=== PATIENT | male | born 1960 | race Hispanic/Latino ===

== ENCOUNTER → 2021-10-05 | Outpatient (CLI) | payer OTHER | END | disposition home or self-care (01) | LOC: RAH 08:34 | PROVIDERS: ATTEND Internal Medicine | DX: K76.0 Fatty (change of) liver, not elsewhere classified (principal) | CPT/HCPCS: 76700 ==

== ENCOUNTER 2023-09-02 13:22 | Emergency (ER) | payer OTHER ==
[~2023-09-02] VITALS: Ht 172.7 cm; Wt 68.0 kg
[2023-09-02 14:08] LABS: BASOPHILS # (AUTO) 0.04 K/uL (0.00-0.20); BASOPHILS % (AUTO) 0.7 % (0.0-5.0); EOSINOPHILS # (AUTO) 0.11 K/uL (0.00-0.70); EOSINOPHILS % (AUTO) 1.9 % (0.0-8.0); HEMATOCRIT 41.8 % (42-54); IMMATURE GRANULOCYTE ABSOLUTE 0.02 K/uL (0-1); LYMPHOCYTES # (AUTO) 0.6 K/uL (1.0-4.8); LYMPHOCYTES % (AUTO) 10.4 % (21.0-51.0); MEAN CORPUSCULAR HEMOGLOBIN 32.6 pg (27.0-33.0); MEAN CORPUSCULAR HGB CONC 34.7 g/dL (32.0-36.0); MEAN CORPUSCULAR VOLUME 93.9 fL (79-99); MONOCYTES # (AUTO) 0.4 K/uL (0.1-1.0); MONOCYTES % (AUTO) 7.2 % (3.0-13.0); NEUTROPHILS # (AUTO) 4.5 K/uL (1.8-7.7); NEUTROPHILS % (AUTO) 79.4 % (40.0-77.0); PLATELET COUNT (AUTO) 52 K/uL (130-400); RED BLOOD CELL COUNT(AUTO) 4.45 MIL/uL (4.50-6.20); RED CELL DISTRIBUTION WIDTH 14.1 % (11.0-15.5); WHITE BLOOD COUNT (AUTO) 5.7 K/uL (4.8-10.8)
[2023-09-02 14:17] LABS: INR 1.05 (0.85-1.15); PROTHROMBIN TIME 12.3 SEC (9.6-11.6)
[2023-09-02 14:19] LABS: PARTIAL THROMBOPLASTIN TIME 29.6 SEC (26.3-35.5)
[2023-09-02 14:31] LABS: CREATININE 0.7 mg/dL (0.5-1.3); POTASSIUM 3.9 mmol/L (3.5-5.1)
[2023-09-02 14:34] LABS: ALBUMIN 2.6 g/dL (3.5-5.0); BILIRUBIN,TOTAL 1.7 mg/dL (0.2-1.0); TOTAL PROTEIN, SERUM 6.4 g/dL (6.0-8.3)
[2023-09-02] MEDS: 0.9%NACL 1000ML 1,000 ML IV ONE (15:28)
[2023-09-02 16:05] LABS: APPEARANCE,URINE CLEAR (CLEAR); BILIRUBIN,URINE NEGATIVE (NEGATIVE); COLOR,URINE YELLOW (YELLOW); GLUCOSE, URINE (UA) >=1000 mg/dL (NEGATIVE); KETONES,URINE NEGATIVE (NEGATIVE); LEUKOCYTE ESTERASE ,URINE NEGATIVE Leu/uL (NEGATIVE); NITRATE,URINE NEGATIVE (NEGATIVE); OCCULT BLOOD,URINE NEGATIVE (NEGATIVE); PH,URINE 6.5 (5.0-8.0); PROTEIN,URINE 10 mg/dL (NEGATIVE); UROBILINOGEN,URINE 3 mg/dL (0.2-1.0)
[2023-09-02 16:07] VITALS: BP 130/68; PULSE 57; RESP 16; O2SAT 97
[2023-09-02 16:27] LABS: ADD UA MICROSCOPIC YES
[2023-09-02 16:32] LABS: SQUAMOUS EPITHELIAL CELL,UR RARE /HPF (0-2)
== END 2023-09-02 17:06 | disposition home or self-care (01) ==
LOC: EDH 13:22
DX: E11.65 Type 2 diabetes mellitus with hyperglycemia (principal); R07.9 Chest pain, unspecified; Z79.899 Other long term (current) drug therapy
CPT/HCPCS: 99285; 96360; 71045; 82550; 84484; 80053; 85025; 85610; 85730; 82948; 82010; 81001; 36415; 93005; J7030

== ENCOUNTER 2024-06-27 12:25 | Emergency (ER) | payer SELFPAY ==
[~2024-06-27] VITALS: Ht 167.6 cm; Wt 69.4 kg
--- NOTE | 2024-06-27 12:34 | ERN ---
ED Note History of Present Illness Stated Complaint: SWELLING/PAIN TO BILATERAL HANDS Chief Complaint: Hand Problem/Injury Time Seen by MD: 12:31 Dictation: PATIENT IS A 64-YEAR-OLD MALE COMING IN TODAY WITH COMPLAINTS OF BILATERAL HAND PAIN AND SWELLING ONSET YESTERDAY. HE STATES HE WAS WALKING WHEN HE TRIPPED AND FELL LANDED ON EXTENDED LEFT HAND AND RIGHT HAND. NOT TAKEN ANYTHING PRIOR TO ARRIVAL FOR PAIN, SKIN IS INTACT. NO PRIMARY CARE DOCTOR . NO BLOOD THINNERS NO HEAD INJURY NO TRAUMA ALERT CRITERIA. Allergies: Coded Allergies: No Known Drug Allergies (Unverified Allergy, Unknown, 06/27/24) Past Medical History Past Medical History: Diabetes-Type II, Liver Disease Surgical History: None RN Note Reviewed/Agreed w/PFSH: Yes Review of System Dictation CONSTITUTIONAL: NEGATIVE EXCEPT FOR HPI HEAD/FACE: NEGATIVE EXCEPT FOR HPI EENT: NEGATIVE EXCEPT FOR HPI RESPIRATORY: NEGATIVE EXCEPT FOR HPI GASTROINTESTINAL/ABDOMINAL: NEGATIVE EXCEPT FOR HPI GENITOURINARY: NEGATIVE EXCEPT FOR HPI MUSCULOSKELETAL: NEGATIVE EXCEPT FOR HPI BILATERAL HAND PAIN/SWELLING INTEGUMENTARY: NEGATIVE EXCEPT FOR HPI NEUROLOGICAL/PSYCH: NEGATIVE EXCEPT FOR HPI HEMATOLOGIC/LYMPHATIC: NEGATIVE EXCEPT FOR HPI ALL SYSTEMS NEGATIVE, EXCEPT NOTED ABOVE. 13 POINT REVIEW OF SYSTEMS ASSESSED AND ALL NEGATIVE EXCEPT FOR ABOVE. Initial Vital Sign VS Vital Signs Date Time Temp Pulse Resp B/P (MAP) Pulse Ox O2 Delivery O2 Flow Rate FiO2 06/27/24 12:30 98.1 70 16 112/67 96 Room Air 0 Physical Exam Dictation VITAL SIGNS REVIEWED GENERAL APPEARANCE: ALERT, ORIENTED X 3, MILD ACUTE DISTRESS, WELL DEVELOPED, NOURISHED. HEAD AND FACE: NON-TRAUMATIC. EYES: PERRL, PINK CONJUNCTIVAS, EYELID NO TRAUMA, ANTERIOR CHAMBER WITH ARCUS SENILIS. EARS: PINNAS INTACT AND NO SIGNS OF TRAUMA OR ERYTHEMA EAR CANALS CLEAR AND NO DISCHARGE TM NO ERYTHEMA NOSE: NO DISCHARGE, NO BLEEDING. OROPHARYNX: MOUTH NORMAL, TONGUE PINK, PHARYNX CLEAR,NO ERYTHEMA, TONSILS NO EXUDATES, NO ABSCESSES NOTED, MUCOUS MEMBRANE MOIST NECK: SUPPLE, NON-TENDER, NO THYROMEGALY, NO MASSES, NO JVD, NO BRUITS BREAST:DEFERRED CHEST:NO TENDERNESS, NO CREPITUS, NO PARADOXICAL MOVEMENT, NO RETRACTIONS LUNGS:CLEAR, WELL-VENTILATED, SYMMETRIC, NO RALES, NO WHEEZING, NO RHONCHI, NO STRIDOR, GOOD BREATH SOUNDS BILATERALLY HEART: REGULAR RATE, REGULAR RHYTHM, NO MURMUR, NO GALLOPS VASCULAR: NO PERIPHERAL EDEMA, ABDOMEN: SOFT, POSITIVE BOWEL SOUNDS, NONDISTENDED, NO GUARDING, NONTENDER, NO REBOUND, NO MASSES NO HEPATOMEGALY, NO SPLENOMEGALY, NO KURTZ'S SIGN, NO HERNIAS. RECTAL: DEFERRED GENITAL: DEFERRED NEUROLOGICAL: NORMAL SPEECH, MOTOR FUNCTION INTACT, SENSORY FUNCTION INTACT MUSCULOSKELETAL: NECK NONTENDER, FULL RANGE OF MOTION, BACK NONTENDER, FULL RANGE OF MOTION, EXTREMITIES: BILATERAL DORSAL HAND PAIN SWELLING STATUS POST SAME LEVEL FALL YESTERDAY. DISTAL NEUROVASCULAR CMS INTACT, SKIN INTACT. SKIN: COLOR PINK, DRY, NO TURGOR, NO RASH, NO LACERATIONS, NO ABRASIONS, NO CONTUSIONS. LYMPHATIC: DEFERRED Results (Laboratory/Radiology) Laboratory/Radiology HAND 3+VWS RT HISTORY: Pain COMPARISON: None TECHNIQUE: 3 images of the right hand were obtained. FINDINGS: There is no acute displaced fracture or dislocation. Radiocarpal joint space narrowing and interphalangeal joint space narrowing are seen. Degenerative changes are seen. IMPRESSION: 1. Findings as described above. HAND 3+VWS LT HISTORY: Pain COMPARISON: None TECHNIQUE: 3 images of the left hand were obtained. FINDINGS: The radiocarpal joint space narrowing and interphalangeal joint space narrowing are seen. There is fracture involving the ulnar styloid styloid of indeterminate age. Clinical correlation is recommended. Degenerative changes are seen. IMPRESSION: 1. Findings as described above. Labs Reviewed?: Yes ED Course ED Course Orders Procedure Category Date Status Time Hand 3+Vws Lt RAD 06/27/24 Resulted 12:32 Hand 3+Vws Rt RAD 06/27/24 Resulted 12:32 Acetaminophen 500mg PHA 06/27/24 Complete Tab (Tylenol 500mg T 13:00 Current Medications Medications (Trade) Dose Ordered Sig/Macario Route PRN Reason Start Time Stop Time Status Last Admin Dose Admin Acetaminophen (TYLenol 500MG TAB) 1,000 mg ONCE ONCE PO 06/27/24 13:00 06/27/24 13:46 DC 06/27/24 14:06 Vital Signs Date Time Temp Pulse Resp B/P (MAP) Pulse Ox O2 Delivery O2 Flow Rate FiO2 06/27/24 12:30 98.1 70 16 112/67 96 Room Air 0 1500/LEFT ULNAR FRACTURE, LEFT HAND NEGATIVE, RIGHT HAND NEGATIVE VOLAR SPLINT PLACED BY TECH DISTAL NEUROVASCULAR CMS INTACT POST PLACED Medical Decision Making MDM DISCHARGE MEDICAL DISCHARGE MAKING BASED ON X-RAYS OF LEFT AND RIGHT HAND. PATIENT HAS LEFT ULNAR FRACTURE NONDISPLACED VOLAR SPLINT PLACED NEUROVASCULAR CMS INTACT TO LEFT HAND POST PLACEMENT REFERRED TO DR. NIMCO ORTIZ DX & DISP Disposition: Discharge Departure Impression: Primary Impression: Contusion of right hand including fingers Additional Impressions: Left ulnar fracture, Fall Condition: Stable Scripts Ibuprofen (Ibuprofen 800 mg Tab) 800 Mg Tab 800 MG PO Q8H PRN for fever or pain, #30 TAB 0 Refills Prov: FRIDA NIELSEN [employer] 06/27/24 Additional Instructions: FOLLOW-UP WITH PRIMARY CARE PROVIDER IN 1 TO 2 DAYS. TAKE MEDICATIONS DIRECTED HERE IN THE EMERGENCY ROOM. OKAY TO CONTINUE HOME MEDICATIONS UNLESS OTHERWISE DISCUSSED DURING YOUR VISIT IN THE EMERGENCY ROOM TODAY. RETURN TO YOUR NEAREST EMERGENCY ROOM IF SYMPTOMS WORSEN OR IF THERE IS NO IMPROVEMENT. CALL 911 IF YOU NEED IMMEDIATE ASSISTANCE. TAKE TYLENOL OR MOTRIN [id number] TER NEEDED AND IF NO CONTRAINDICATIONS ARE PRESENT. INCREASE ORAL HYDRATION. A WOUND CULTURE OR URINE CULTURE WAS ORDERED HERE IN THE EMERGENCY ROOM DEPARTMENT PLEASE FOLLOW-UP WITH PRIMARY CARE PROVIDER AND ADVISE THEM TO GET REPEAT PORTS FROM OUR FACILITY. IF YOU HAD ANY KAIN WRAP/SPLINTS THAT WERE APPLIED HERE, PLEASE DO NOT REMOVE THEM UNTIL YOU SEE YOUR PRIMARY CARE OR SP ECIALTY. FOLLOW-UP WITH PRIMARY CARE PROVIDER IN 1 TO 2 DAYS. TAKE MEDICATIONS DIRECTED HERE IN THE EMERGENCY ROOM. OKAY TO CONTINUE HOME MEDICATIONS UNLESS OTHERWISE DISCUSSED DURING YOUR VISIT IN THE EMERGENCY ROOM TODAY. RETURN TO YOUR NEAREST EMERGENCY ROOM IF SYMPTOMS WORSEN OR IF THERE IS NO IMPROVEMENT. CALL 911 IF YOU NEED IMMEDIATE ASSISTANCE. TAKE TYLENOL OR MOTRIN [id number] NEEDED AND IF NO CONTRAINDICATIONS ARE PRESENT. INCREASE ORAL HYDRATION. A WOUND CULTURE OR URINE CULTURE WAS ORDERED HERE IN THE EMERGENCY ROOM DEPARTMENT PLEASE FOLLOW-UP WITH PRIMARY CARE PROVIDER AND ADVISE THEM TO GET REPEAT PORTS FROM OUR FACILITY. IF YOU HAD ANY KAIN WRAP/SPLINTS THAT WERE APPLIED HERE, PLEASE DO NOT REMOVE THEM UNTIL YOU SEE YOUR PRIMARY CARE OR SPECIALTY. SPLINT/SLING/NO WEIGHT-BEARING UNTIL CLEARED BY ORTHOPEDIC SURGEON, CALL FOR AN APPOINTMENT. COOL COMPRESSES TO PAIN THREE TO 4 TIMES A DAY. . Referrals: TERRA HAILE MD (PCP) NIMCO ORTIZ DO Time of Disposition: 15:03 I have reviewed the case, and I agree with, Diagnosis and Plan FRIDA NIELSEN NP Jun 27, 2024 12:34
--- NOTE | 2024-06-27 14:02 | HMCIMG ---
HAND 3+VWS RT HISTORY: Pain COMPARISON: None TECHNIQUE: 3 images of the right hand were obtained. FINDINGS: There is no acute displaced fracture or dislocation. Radiocarpal joint space narrowing and interphalangeal joint space narrowing are seen. Degenerative changes are seen. IMPRESSION: 1. Findings as described above.
[2024-06-27] MEDS: acetaMINOPHEN 500 MG TABLET PO ONE (14:06)
--- NOTE | 2024-06-27 14:06 | HMCIMG ---
HAND 3+VWS LT HISTORY: Pain COMPARISON: None TECHNIQUE: 3 images of the left hand were obtained. FINDINGS: The radiocarpal joint space narrowing and interphalangeal joint space narrowing are seen. There is fracture involving the ulnar styloid styloid of indeterminate age. Clinical correlation is recommended. Degenerative changes are seen. IMPRESSION: 1. Findings as described above.
[2024-06-27] MEDS ORDERED: IBUP-2077 PO (15:12)
[2024-06-27 15:51] VITALS: BP 115/69; PULSE 72; RESP 16; TEMP 98.1; O2SAT 98
== END 2024-06-27 16:03 | disposition home or self-care (01) ==
LOC: EDH 12:25
DX: S52.612A Displaced fracture of left ulna styloid process, initial encounter for closed fracture (principal); S60.221A Contusion of right hand, initial encounter; E11.9 Type 2 diabetes mellitus without complications; W01.0XXA Fall on same level from slipping, tripping and stumbling without subsequent striking against object, initial encounter; Y93.89 Activity, other specified; Y92.89 Other specified places as the place of occurrence of the external cause; Y99.8 Other external cause status
CPT/HCPCS: 29125; 73130; 99283; 99284